=== PATIENT | male | born 1980 | race African-American/Black ===

== ENCOUNTER 2020-04-23 19:09 | Emergency (ER) | payer MEDICAID ==
--- NOTE | 2020-04-23 19:57 | ER Document Report ---
ED Medical Screen (RME) - General Chief Complaint: Blurred Vision Stated Complaint: BLURRY VISION Time Seen by Provider: 04/23/20 19:48 Primary Care Provider: JUAN VOGT [Primary Care Provider] - Follow up as needed Mode of Arrival: Ambulatory Information source: Patient Notes: Patient is a 40-year-old male comes emergency room concerned that he is losing his vision. Patient states that he started 2 weeks ago noticing that things were getting blurry and is progressively gotten worse. Patient states that the reason he came in tonight is that he got really scared because he was unable to make out his own because of his face from 10 feet away. Nothing new has changed over the 2 weeks except is progressively gotten worse. Patient only admits to history of hypertension. Current medications are only lisinopril Cogentin and Haldol. He does state he smokes half pack cigarettes a day. Physical examination: Patient is a well-nourished well-developed 40-year-old male who is in no apparent distress this evening. Lungs: Auscultation patient's lungs has bilateral breath sounds with breath sounds increase clear to auscultation. Cardiac: Regular rate and rhythm without murmurs. HEENT shows normal facial features, he has poor dentition. Examination of the eyes with the just a flashlight does show them to be PERRLA. Conjunctiva is somewhat injected. I have greeted and performed a rapid initial assessment of this patient. A comprehensive ED assessment evaluation of the patient analysis of the test results and completion the medical decision-making process will be conducted by an additional ED provider. Visual acuity has been ordered along with basic labs. - Related Data Allergies/Adverse Reactions: No Known Allergies Allergy (Unverified 04/23/20 19:48) Physical Exam - Vital signs Vitals: Temp Pulse Resp BP Pulse Ox 98.5 F 83 13 133/90 H 99 04/23/20 19:32 04/23/20 19:32 04/23/20 19:32 04/23/20 19:32 04/23/20 19:32 Course - Vital Signs Vital signs: Temp Pulse Resp BP Pulse Ox 98.5 F 83 13 133/90 H 99 04/23/20 19:32 04/23/20 19:32 04/23/20 19:32 04/23/20 19:32 04/23/20 19:32 Doctor's Discharge - Discharge Referrals: LOCALMD,NO [Primary Care Provider] - Follow up as needed
[2020-04-23 20:31] LABS: ABSOLUTE EOSINOPHILS # (AUTO) 0.1 10^3/uL (0.0-0.6); ABSOLUTE LYMPHOCYTES (AUTO) 1.2 10^3/uL (0.5-4.7); ABSOLUTE MONOCYTES (AUTO) 0.2 10^3/uL (0.1-1.4); ABSOLUTE NEUT (AUTO) 3.4 10^3/uL (1.7-8.2); BASOPHILS % (AUTO) 0.9 % (0-2); EOSINOPHILS % (AUTO) 2.4 % (0-6); HEMATOCRIT 41.8 % (37.9-51.0); HEMOGLOBIN 14.6 g/dL (13.5-17.0); LYMPHOCYTES % (AUTO) 23.9 % (13-45); MEAN CORPUSCULAR HEMOGLOBIN 28.4 pg (27.0-33.4); MEAN CORPUSCULAR HGB CONC 34.9 g/dL (32.0-36.0); MEAN CORPUSCULAR VOLUME 81 fl (80-97); MONOCYTES % (AUTO) 4.5 % (3-13); PLATELET COUNT 420 10^3/uL (150-450); RED BLOOD COUNT 5.15 10^6/uL (4.35-5.55); RED CELL DISTRIBUTION WIDTH 16.6 % (11.5-14.0); SEGMENTED NEUTROPHILS % (AUTO) 68.3 % (42-78); TOTAL CELLS COUNTED % (AUTO) 100 %; WHITE BLOOD COUNT 5.1 10^3/uL (4.0-10.5)
[2020-04-23 20:40] LABS: ALBUMIN 4.9 g/dL (3.5-5.0); ALKALINE PHOSPHATASE 77 U/L (38-126); ANION GAP 10 (5-19); ASPARTATE AMINO TRANSFERASE 22 U/L (17-59); BILIRUBIN,DIRECT 0.1 mg/dL (0.0-0.4); BILIRUBIN,TOTAL 0.6 mg/dL (0.2-1.3); BLOOD UREA NITROGEN 7 mg/dL (7-20); CALCIUM 9.7 mg/dL (8.4-10.2); CARBON DIOXIDE 28 mmol/L (22-30); CHLORIDE 97 mmol/L (98-107); GLUCOSE 109 mg/dL (75-110); POTASSIUM 3.5 mmol/L (3.6-5.0); TOTAL PROTEIN 8.5 g/dL (6.3-8.2)
[2020-04-24 01:33] LABS: APPEARANCE,URINE CLEAR; BILIRUBIN,URINE NEGATIVE (NEGATIVE); COLOR,URINE COLORLESS; GLUCOSE, URINE NEGATIVE (NEGATIVE); KETONES,URINE NEGATIVE (NEGATIVE); PROTEIN,URINE NEGATIVE (NEGATIVE); URINE SPECIFIC GRAVITY 1.003; UROBILINOGEN,URINE NEGATIVE mg/dL (<2.0)
--- NOTE | 2020-04-24 01:54 | ER Document Report ---
ED Eye Complaint - General Chief Complaint: Blurred Vision Stated Complaint: BLURRY VISION Time Seen by Provider: 04/23/20 19:48 Primary Care Provider: JUAN VOGT [NO LOCAL MD] - Follow up as needed Mode of Arrival: Ambulatory Notes: CHIEF COMPLAINT: Blurred vision for 2 weeks HPI: 40-year-old male presenting for blurred vision both eyes for the last 2 weeks. States it is progressively slowly getting worse. Denies ocular pain. Denies headache. Denies unilateral symptoms. Denies redness or swelling of the eyes. Has not seen an eye doctor for evaluation of his symptoms. States he has never worn glasses previously ROS: See HPI - all other systems were reviewed and are otherwise negative Constitutional: no fever Eyes: no drainage, + blurred vision ENT: no runny nose, no sore throat Cardiovascular: no chest pain Resp: no SOB, no cough GI: no vomiting, no diarrhea, no abdominal pain : no dysuria Integumentary: no rash Allergy: no hives Musculoskeletal: no extremity pain or swelling Neurological: no numbness/tingling, no weakness MEDICATIONS: I agree with the patient medications as charted by the RN. ALLERGIES: I agree with the allergies as charted by the RN. PAST MEDICAL HISTORY/PAST SURGICAL HISTORY: Reviewed and agree as charted by RN. SOCIAL HISTORY: Reviewed and agree as charted by RN. FAMILY HISTORY: No significant familial comorbid conditions directly related to patient complaint EXAM: Reviewed vital signs as charted by RN. CONSTITUTIONAL: Alert and oriented and responds appropriately to questions. Well-appearing; well-nourished HEAD: Normocephalic; atraumatic EYES: PERRL; Conjunctivae clear, sclerae non-icteric. Funduscopic exam reveals crisp disc margins. No hyphema. No cataract. No visible foreign bodies under the upper or lower lids. No visible corneal abrasions. ENT: normal nose; no rhinorrhea; moist mucous membranes; pharynx without lesions noted, no uvula edema or deviation, no tonsillar hypertrophy, phonation normal NECK: Supple without meningismus; non-tender; no cervical lymphadenopathy, no masses CARD: Capillary refill less than 3 seconds; symmetric distal pulses RESP: Normal chest excursion without splinting or tachypnea ABD/GI: Normal bowel sounds; non-distended; soft, non-tender BACK: The back appears normal EXT: Normal ROM in all joints; non-tender to palpation; no cyanosis, no effusions, no edema SKIN: Normal color for age and race; warm; dry; good turgor; no acute lesions noted NEURO: Moves all extremities equally; Motor and sensory function intact PSYCH: The patient's mood and manner are appropriate. Grooming and personal hygiene are appropriate. MDM: 40-year-old male presenting with blurred vision both eyes. Patient's visual acuity not significantly abnormal. His ocular examination does not show evidence of a cataract, has very crisp disc margins with no hemorrhage. Patient may simply need glasses. His screening labs ordered in triage process show no acute abnormalities. He has no headaches to suggest intracranial bleed or mass at this time. Has no ocular pain to suggest glaucoma. I spoke with the patient at length, he is comfortable with the plan for discharge to be referred to ophthalmology or optometry for reevaluation - Related Data Allergies/Adverse Reactions: No Known Allergies Allergy (Unverified 04/23/20 19:48) Past Medical History - General Information source: Patient - Social History Smoking Status: Current Every Day Smoker Frequency of alcohol use: None Drug Abuse: None Family History: Reviewed & Not Pertinent Patient has homicidal ideation: No - Past Medical History Cardiac Medical History: Reports: Hx Hypertension Psychiatric Medical History: Reports: Hx Schizophrenia Physical Exam - Vital signs Vitals: Temp Pulse Resp BP Pulse Ox 98.5 F 83 13 133/90 H 99 04/23/20 19:32 04/23/20 19:32 04/23/20 19:32 04/23/20 19:32 04/23/20 19:32 - HEENT Visual acuity- Right eye: 20/20 Visual acuity- Left eye: 20/40 Visual acuity- Both eyes: 20/15 Corrective lenses worn: No Course - Vital Signs Vital signs: Temp Pulse Resp BP Pulse Ox 98.1 F 77 16 118/84 98 04/24/20 00:51 04/24/20 00:51 04/24/20 00:51 04/24/20 00:51 04/24/20 00:51 - Laboratory Result Diagrams: 04/23/20 20:15 04/23/20 20:15 Laboratory results interpreted by me: 04/23/20 04/23/20 20:15 20:15 RDW 16.6 H Sodium 134.7 L Potassium 3.5 L Chloride 97 L Total Protein 8.5 H Discharge - Discharge Clinical Impression: Blurred vision, bilateral Condition: Stable Disposition: HOME, SELF-CARE Additional Instructions: There was not a definitive causation found for your blurred vision tonight. It is very important that you follow-up with an circuit recorder or remodeler for reevaluation of your visual complaint. You have been given a referral to ophthalmology but you may certainly also see optometry. Call to obtain an appointment this week for reevaluation of your symptoms. If you develop worsening symptoms return for reevaluation Referrals: BRI BRAUN MD [ACTIVE STAFF] - Follow up as needed
[2020-04-24 02:02] VITALS: BP 131/79
== END 2020-04-24 02:03 | disposition home or self-care (01) ==
LOC: ER 19:09
DX: H53.8 Other visual disturbances (principal); I10 Essential (primary) hypertension; F17.200 Nicotine dependence, unspecified, uncomplicated
CPT/HCPCS: 36415; 80053; 81001; 85025; 99284